=== PATIENT | male | born 1985 | race Caucasian/White ===

== ENCOUNTER 2018-12-26 08:12 | Emergency (ER) | payer SELFPAY ==
[~2018-12-26] VITALS: Ht 182.9 cm; Wt 100.0 kg
[~2018-12-26 08:12] MED LIST: BACTRIM DS1 TAB PO; CEPHALEXIN500 MG PO; DOXY-CAPS100 MG PO; FLEXERIL OR; FLEXERIL10 MG OR; LORTAB 10 OR; LORTAB 7.5 OR; LORTAB 7.57.5 MG PO; MOTRIN800 MG PO; NAPROSYN500 MG PO; ULTRAM50 MG OR; [UNRECOGNIZED DRUG - OTHER] OR
[2018-12-26 09:11] LABS: HEMATOCRIT 44.9 % (39.0-50.0); IMMATURE GRANULOCYTES 2.2 % (0.0-5.0); MEAN CELL VOLUME 90.2 fL CALC (80.0-100.0); MEAN CORPUSCULAR HGB 31.5 pG CALC (26.0-32.0); NEUT# 5.63 thou/uL (1.82-7.42); RED BLOOD COUNT 4.98 mill/uL (4.70-6.10); RED CELL DISTRI WIDTH 11.9 % (11.5-15.5)
[2018-12-26 09:12] LABS: ALBUMIN 5.3 g/dL (3.2-5.0); HEMOGLOBIN 15.7 g/dl (14.0-18.0)
[2018-12-26 09:14] LABS: BILIRUBIN, TOTAL 1.2 mg/dL (0.0-1.4); CREATININE 2.6 mg/dL (0.7-1.3); POTASSIUM 5.3 mmol/l (3.5-5.1)
[2018-12-26 09:15] LABS: TOTAL PROTEIN 9.2 g/dL (6.3-8.2)
[2018-12-26 09:53] LABS: BARBITURATES NEGATIVE (NEGATIVE); COCAINE NEGATIVE (NEGATIVE); METHADONE NEGATIVE (NEGATIVE); OXCYCODONE NEGATIVE (NEGATIVE); TETRAHYDROCANNABIONOL NEGATIVE (NEGATIVE); TRICYLIC ANTIDEPRESSANTS NEGATIVE (NEGATIVE)
[2018-12-26 10:05] VITALS: BP 92/34
[2018-12-26 11:09] LABS: URINE BILIRUBIN - DIPSTICK NEGATIVE (NEGATIVE); URINE BLOOD DIPSTICK SMALL (NEGATIVE); URINE COLOR YELLOW; URINE GLUCOSE - DIPSTICK NEGATIVE (NEGATIVE); URINE KETONE 15 mg/dL (NEGATIVE); URINE LEUK ESTERASE NEGATIVE (NEGATIVE); URINE NITRITE - DIPSTICK NEGATIVE (Negative); URINE PROTEIN - DIPSTICK 100 mg/dL (NEG-TRACE); URINE RBC 0-2 RBC/hpf (0-5); URINE SPECIFIC GRAVITY >=1.030; URINE UROBILINOGEN - DIPSTICK 0.2 E.U./dL (0.2)
[2018-12-26 11:10] LABS: URINE AMORPH SEDIMENT MANY hpf (NONE-FER); URINE EPITHELIAL CELLS FEW EPI/hpf (0-FEW); URINE MUCUS FEW hpf (NONE-FEW)
== END 2018-12-26 10:05 | disposition short-term general hospital (02) | DRG 917 ==
LOC: ED 08:12
PROVIDERS: Emergency Medicine
PROC: 0BH17EZ Insertion of Endotracheal Airway into Trachea, Via Natural or Artificial Opening (ICD-10-PCS; principal; 2018-12-26)
DX: T40.991A Poisoning by other psychodysleptics [hallucinogens], accidental (unintentional), initial encounter (principal); A41.9 Sepsis, unspecified organism; I95.9 Hypotension, unspecified; R50.9 Fever, unspecified; F17.200 Nicotine dependence, unspecified, uncomplicated
CPT/HCPCS: J0131